=== PATIENT | male | born 1975 | race Caucasian/White ===

== ENCOUNTER 2021-03-31 10:59 | Outpatient (CLI) | payer BC ==
[2021-03-31 17:58] LABS: SARS-CoV-2 PCR by NAA Not Detected (NotDetected)
== END 2021-03-31 11:00 | disposition home or self-care (01) ==
LOC: LABBT 10:59
PROVIDERS: ATTEND Otolaryngology Plastic Surgery within the Head & Neck
DX: Z01.818 Encounter for other preprocedural examination (principal); J32.9 Chronic sinusitis, unspecified; J34.89 Other specified disorders of nose and nasal sinuses; J34.2 Deviated nasal septum; H81.10 Benign paroxysmal vertigo, unspecified ear; J34.3 Hypertrophy of nasal turbinates; J30.9 Allergic rhinitis, unspecified; G47.33 Obstructive sleep apnea (adult) (pediatric); H91.90 Unspecified hearing loss, unspecified ear; Z20.822 Contact with and (suspected) exposure to COVID-19
CPT/HCPCS: 87635; 93005; 93010; U0003; U0005

== ENCOUNTER 2021-04-05 07:04 | Day surgery (SDC) | payer BC ==
[2021-04-04 11:05] VITALS: BMI 40.8
[2021-04-05] MEDS ORDERED: AFRIN NASAL MIST 15 ML BOT ONE ×2 (08:01→08:58)
[2021-04-05] MEDS ORDERED: Fentanyl 100 MCG/2 ML VIAL ONE ×3 (08:13→10:26)
[2021-04-05] MEDS ORDERED: Bacitracin Zinc Ointment 30 gm TUBE ONE (08:58)
[2021-04-05] MEDS ORDERED: Lidocaine 1% w/Epinephrine 1:100K 20 ML VIAL ONE (08:58)
[2021-04-05] MEDS ORDERED: Acetaminophen 500 MG TAB ONE (09:12)
[2021-04-05] MEDS ORDERED: PROPOFOL 200 MG/20 ML VIAL ONE (09:24)
[2021-04-05] MEDS ORDERED: Midazolam HCl 2 mg/2 ml Vial ONE (09:24)
[2021-04-05] MEDS ORDERED: Succinylcholine 200 MG/10 ml SYRINGE FS ONE (09:24)
[2021-04-05] MEDS ORDERED: Lidocaine 1% PF 5 ML VIAL ONE (09:24)
[2021-04-05] MEDS ORDERED: Ondansetron PF 4 MG/2 ML Vial ONE (09:24)
[2021-04-05] MEDS ORDERED: Dexamethasone 20 MG/5 ML VIAL ONE (09:24)
[2021-04-05] MEDS ORDERED: Hydrocodone-Acetamin 15 ML UDCUP ONE (12:32)
== END 2021-04-05 13:10 | disposition home or self-care (01) ==
LOC: SDC 07:04
PROVIDERS: ATTEND Otolaryngology Plastic Surgery within the Head & Neck
PROC: 09BL8ZZ Excision of Nasal Turbinate, Via Natural or Artificial Opening Endoscopic (ICD-10-PCS; principal; 2021-04-05)
PROC: 09SM4ZZ Reposition Nasal Septum, Percutaneous Endoscopic Approach (ICD-10-PCS; principal; 2021-04-05)
DX: J34.89 Other specified disorders of nose and nasal sinuses (principal); J32.9 Chronic sinusitis, unspecified; J34.2 Deviated nasal septum; J34.3 Hypertrophy of nasal turbinates; I10 Essential (primary) hypertension; G47.30 Sleep apnea, unspecified; G47.33 Obstructive sleep apnea (adult) (pediatric); H81.10 Benign paroxysmal vertigo, unspecified ear; E66.01 Morbid (severe) obesity due to excess calories; Z68.41 Body mass index [BMI] 40.0-44.9, adult; Z79.899 Other long term (current) drug therapy
CPT/HCPCS: C1889; J1100; J2250; J2405; J2704; J3010